=== PATIENT | male | born 1985 | race Caucasian/White ===

== ENCOUNTER 2019-09-18 10:28 | Emergency (ER) | payer MEDICAID ==
[~2019-09-18] VITALS: Ht 190.5 cm; Wt 120.2 kg
[2019-09-18 11:11] VITALS: Ht 190.5 cm; Wt 120.2 kg
[2019-09-18 11:59] VITALS: BP 126/83
== END 2019-09-18 11:59 | disposition home or self-care (01) ==
LOC: ED 10:28
DX: J40 Bronchitis, not specified as acute or chronic (principal); E11.9 Type 2 diabetes mellitus without complications
CPT/HCPCS: 99406; Q0092